=== PATIENT | male | born 1990 | race Asian ===

== ENCOUNTER 2024-08-26 11:06 | Emergency (ER) | payer MEDICAID ==
[~2024-08-26] VITALS: Ht 160 cm; Wt 61.2 kg
[2024-08-26 11:16] VITALS: BP_SYST 135; PULSE 85; RESP 18; TEMP 98.3; O2SAT 98
[2024-08-26] MEDS ORDERED: ACYC-133 PO (11:25)
[2024-08-26 11:56] VITALS: BP_SYST 135; PULSE 85; RESP 18; TEMP 98.3; O2SAT 98
== END 2024-08-26 11:57 | disposition home or self-care (01) ==
LOC: SED 11:06
DX: B00.2 Herpesviral gingivostomatitis and pharyngotonsillitis (principal); Z79.624 Long term (current) use of inhibitors of nucleotide synthesis
CPT/HCPCS: 36415; 86592; 99283